=== PATIENT | female | born 1990 | race African-American/Black ===

== ENCOUNTER 2018-07-08 15:36 | Emergency (ER) | payer OTHER ==
--- NOTE | 2018-07-08 15:40 | PDOC ---
Rapid Medical Evaluation Time Seen by Provider: 07/08/18 15:37 Medical Evaluation: Allergies Allergy/AdvReac Type Severity Reaction Status Date / Time peach Allergy Verified 04/01/18 15:33 07/08/18 15:38 I have performed a brief in-person evaluation of this patient. The patient presents with a chief complaint of: left lower back pain radiating to LLQ Pertinent physical exam findings: LLQ tenderness with guarding. No CVAT. I have ordered the following: urine The patient will proceed to the ED for further evaluation. Discharge Disposition - Diagnosis Back pain - Referrals - Patient Instructions - Post Discharge Activity
[2018-07-08 15:42] VITALS: BP 115/69; PULSE 90; TEMP 99.1; BMI 32.0
--- NOTE | 2018-07-08 16:20 | PDOC ---
History of Present Illness - General Chief Complaint: Pain Stated Complaint: LEFT SIDE PAIN/BACK PAIN Time Seen by Provider: 07/08/18 15:37 - History of Present Illness Initial Comments: 07/08/18 16:18 27-year-old female presents for evaluation of left-sided lower back pain which radiates around and about like fashion to her abdomen 3 days getting worse. No fever nausea vomiting or associated symptoms. Pain seems to be exacerbated with movement minimally relieved with rest with the above-mentioned radiation Past History - Past Medical History Allergies/Adverse Reactions: Allergies Allergy/AdvReac Type Severity Reaction Status Date / Time peach Allergy Verified 07/08/18 15:42 Home Medications: Ambulatory Orders NK [No Known Home Medication] 07/08/18 COPD: No Psychiatric Problems: Yes (anxiety, migraines) - Immunization History Immunization Up to Date: Yes - Suicide/Smoking/Psychosocial Hx Smoking History: Never smoked Have you smoked in the past 12 months: No Information on smoking cessation initiated: No Hx Alcohol Use: No Drug/Substance Use Hx: Yes Substance Use Type: Marijuana Review of Systems - Review of Systems Constitutional: No: Chills, Diaphoresis, Fever, Malaise, Night Sweats ABD/GI: No: Constipated, Diarrhea, Nausea, Vomiting, Indigestion Musculoskeletal: Yes: Back Pain *Physical Exam - Vital Signs Last Vital Signs Temp Pulse Resp BP Pulse Ox 99.1 F 90 18 115/69 99 07/08/18 15:39 07/08/18 15:39 07/08/18 15:39 07/08/18 15:39 07/08/18 15:39 - Physical Exam Comments: 07/08/18 16:19 HEAD: NC/AT EYES: Conjuntiva clear Ears: Canals and TM's normal NOSE: No d/c THROAT: Moist mucous membrances, oral pharanx clear, uvula midline NECK: Supple without adenopathy CARDIAC: S1 S2 LUNGS: CTA Full and Equal breath sounds ABDOMEN: Soft left upper and lower quadrant tenderness no CVA tenderness MS: Full ROM in all joints without edema , left-sided lumbar spine tenderness no midline tenderness NEUROLOGIC: No gross sensory or motor deficits, NVID SKIN: Normal color and temperature no lesions or rashes Medical Decision Making - Medical Decision Making 07/08/18 16:19 Patient is a need of further workup I will transfer her to the main emergency room for further evaluation of back and abdominal pain *DC/Admit/Observation/Transfer Diagnosis at time of Disposition: Back pain - Referrals - Patient Instructions - Post Discharge Activity
[2018-07-08 16:58] LABS: URINE APPEARANCE SLCLOUDY; URINE BILIRUBIN NEGATIVE (<2.0 mg/dL); URINE COLOR YELLOW; URINE GLUCOSE (UA) NEGATIVE (NEGATIVE); URINE KETONE 1+ (NEGATIVE); URINE LEUK ESTERASE 2+ (NEGATIVE); URINE NITRITE POSITIVE (NEGATIVE); URINE PROTEIN 1+ (NEGATIVE); URINE UROBILINOGEN 4.0 E.U/dl mg/dL (0.2-1.0)
[2018-07-08 16:59] LABS: HCG,QUALITATIVE URINE Negative
[2018-07-08] MEDS ORDERED: ACETAMINOPHEN 1000 MG/100 ML VIAL (NON FORMULARY) IVPB ONE (17:02)
[2018-07-08] MEDS ORDERED: ACETAMINOPHEN INJECTION 100 ML IVPB ONE (17:13)
[2018-07-08 17:15] LABS: EPI CELLS FEW /HPF (FEW); URINE MUCUS RARE
[2018-07-08 17:20] LABS: BASO % 0.7 % (0-2.0); EOS % 0.3 % (0-4.5); HEMATOCRIT 38.9 % (32.4-45.2); HEMOGLOBIN 13.5 GM/dL (10.7-15.3); LYMPH % 16.6 % (8-40); MCH 29.4 pg (25.7-33.7); MCHC 34.7 g/dl (32.0-36.0); MEAN CELL VOLUME 84.7 fl (80-96); NEUT % 74.4 % (42.8-82.8); PLATELET COUNT 271 K/MM3 (134-434); RDW 13.3 % (11.6-15.6); WHITE BLOOD COUNT 10.7 K/mm3 (4.0-10.0)
--- NOTE | 2018-07-08 17:29 | PDOC ---
*Physical Exam - Vital Signs Last Vital Signs Temp Pulse Resp BP Pulse Ox 99.1 F 90 18 115/69 99 07/08/18 15:39 07/08/18 15:39 07/08/18 15:39 07/08/18 15:39 07/08/18 15:39 07/08/18 17:06 Patient's care was endorsed to me by DAVE Goodman. Patient is a 27 YOF who p/w left flank/left abdominal pain, has left sided abdominal ttp, also left sided tenderness on palpation of the right abdomen. She is pending labs. ED Treatment Course - LABORATORY CBC & Chemistry Diagram: 07/08/18 17:01 07/08/18 17:01 - ADDITIONAL ORDERS Additional order review: Laboratory Results 07/08/18 16:15 Urine HCG, Qual Negative Medical Decision Making - Medical Decision Making 07/08/18 18:40 Laboratory Tests 07/08/18 07/08/18 07/08/18 16:15 17:01 17:01 WBC 10.7 H RBC 4.60 Hgb 13.5 Hct 38.9 MCV 84.7 MCH 29.4 MCHC 34.7 RDW 13.3 Plt Count 271 MPV 9.0 Absolute Neuts (auto) 8.0 Neutrophils % 74.4 Lymphocytes % 16.6 Monocytes % 8.0 Eosinophils % 0.3 D Basophils % 0.7 Nucleated RBC % 0 Sodium 139 Potassium 3.7 Chloride 104 Carbon Dioxide 26 Anion Gap 9 BUN 9 Creatinine 0.7 Creat Clearance w eGFR > 60 Random Glucose 103 Calcium 8.9 Total Bilirubin 0.4 AST 11 L ALT 15 Alkaline Phosphatase 61 Total Protein 7.4 Albumin 4.0 Lipase 70 L Urine Color Yellow Urine Appearance Slcloudy Urine pH 7.0 Ur Specific [place] 1.012 Urine Protein 1+ H Urine Glucose (UA) Negative Urine Ketones 1+ H Urine Blood Negative Urine Nitrite Positive Urine Bilirubin Negative Urine Urobilinogen 4.0 e.u/dl H Ur Leukocyte Esterase 2+ H Urine WBC (Auto) 44 Urine RBC (Auto) 4 Ur Epithelial Cells Few Urine Mucus Rare Urine HCG, Qual Negative Pt has e/o UTI, Bactrim given here PO, E-Rx sent to her pharmacy. I am not concerned for infected obstructive uropathy as she has no personal of family h/o renal stones. On my repeat exam she has no CVA tenderness, no abdominal tenderness. She states no pain at all at this time, wants to go home, has already removed her own IV in preparation to go home. She is appropriate for discharge home with close outpatient f/u. She is counseled to take enture abx course as prescribed. She is counseled on return precautions and will come back to ED for any further emergency concerns. *DC/Admit/Observation/Transfer Diagnosis at time of Disposition: UTI (urinary tract infection) Qualifiers: Urinary tract infection type: acute cystitis Hematuria presence: with hematuria Qualified Code(s): N30.01 - Acute cystitis with hematuria - Discharge Dispostion Disposition: HOME Condition at time of disposition: Stable Decision to Admit order: No - Prescriptions Prescriptions: Sulfamethoxazole/Trimethoprim [Bactrim Ds -] 1 tab PO BID #27 tablet - Referrals - Patient Instructions Additional Instructions: You were seen in the ER for painful urination. We did blood and urine labs and you have a urinary tract infection, but there were no other abnormalities. After our assessment, we do not believe you are having a medical emergency at this time, and we believe you are safe to go home. 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 Take the whole course of antibiotics as directed, whether or not you feel better. Please take over the counter pain medications for pain, following the instructions on the medication label. For painful urination, please take pyridium (azo) which you can get [id number] at the pharmacy. This will turn your urine orange and it is nothing to worry about while you are taking this medication. Follow up with your primary doctor in 1-3 days. Call their clinic [facility], tell them you were seen in the ER, and tell them you need an appointment. Please come back to the ER at any time, 24 hours a day, for any new or worsening symptoms, like worsened pain, increased or foul-smelling discharge, fever, testicular/scrotal pain or swelling, or other symptoms. If you are having severe or life threatening symptoms, or symptoms that make it unsafe to drive or have someone drive you, please call 911. - Post Discharge Activity
[2018-07-08 18:06] LABS: ALK PHOS 61 U/L (45-117); ANION GAP 9 MMOL/L (8-16); BILIRUBIN,TOTAL 0.4 mg/dL (0.2-1); BLOOD UREA NITROGEN 9 mg/dL (7-18); CALCIUM 8.9 mg/dL (8.5-10.1); CHLORIDE 104 mmol/L (98-107); CO2 26 mmol/L (21-32); CREATININE 0.7 mg/dL (0.55-1.3); GLUCOSE,RANDOM 103 mg/dL (74-106); LIPASE 70 U/L (73-393); POTASSIUM 3.7 mmol/L (3.5-5.1); SGOT/AST 11 U/L (15-37); SGPT/ALT 15 U/L (13-61); SODIUM 139 mmol/L (136-145); TOT PROT 7.4 g/dl (6.4-8.2)
[2018-07-08] MEDS ORDERED: SULFAMETHOXAZOLE/TRIMETHOPRIM 800MG/160MG D.S. TABLET PO ONE (18:26)
--- NOTE | 2018-07-08 18:26 | PDOC ---
Attending Attestation - Resident Resident Name: Daxa Kyle - ED Attending Attestation I have performed the following: I have examined & evaluated the patient, The case was reviewed & discussed with the resident, I agree w/resident's findings & plan, Exceptions are as noted - HPI HPI: 27 yo F presents with L flank/abd pain. Transferred from fast track for further management. - Physicial Exam PE: GENERAL: Awake, alert, and fully oriented, in no acute distress HEAD: No signs of trauma EYES: PERRLA, EOMI, sclera anicteric, conjunctiva clear ENT: Auricles normal inspection, hearing grossly normal, nares patent, oropharynx clear without exudates. Moist mucosa NECK: Normal ROM, supple, no lymphadenopathy, JVD, or masses LUNGS: Breath sounds equal, clear to auscultation bilaterally. No wheezes, and no crackles HEART: Regular rate and rhythm, normal S1 and S2, no murmurs, rubs or gallops ABDOMEN: Soft, nontender, normoactive bowel sounds. No guarding, no rebound. No masses. +L mid abd tenderness. EXTREMITIES: Normal range of motion, no edema. No clubbing or cyanosis. No cords, erythema, or tenderness NEUROLOGICAL: Cranial nerves II through XII grossly intact. Normal speech, normal gait SKIN: Warm, Dry, normal turgor, no rashes or lesions noted. - Medical Decision Making Pt afebrile, no vomiting, however, having flank pain. Will treat as pyelo.
[2018-07-08] MEDS ORDERED: SULFAMETHOXAZOLE/TRIMETHOPRIM 800MG/160MG D.S. TABLET ONE (18:35)
== END 2018-07-08 18:39 | disposition home or self-care (01) ==
LOC: JER 15:36
PROC: 3E033NZ Introduction of Analgesics, Hypnotics, Sedatives into Peripheral Vein, Percutaneous Approach (ICD-10-PCS; principal; 2018-07-08)
DX: N30.01 Acute cystitis with hematuria (principal)
CPT/HCPCS: 36415; 80053; 81003; 81015; 83690; 84703; 85025; 87086; 87186; 99283-25; J0131